=== PATIENT | female | born 1955 | race Caucasian/White ===

== ENCOUNTER 2017-11-04 07:05 | Day surgery (SDC) | payer OTHER ==
[2017-11-04] MEDS ORDERED: FENTAnyl 50 MCG/ML VIAL (09:56)
[2017-11-04] MEDS ORDERED: MIDAZOLAM 1 MG/ML 2 ML INJ ×2 (09:56)
== END 2017-11-04 10:16 | disposition home or self-care (01) ==
LOC: GIL 07:05
DX: Z12.11 Encounter for screening for malignant neoplasm of colon (principal); K44.9 Diaphragmatic hernia without obstruction or gangrene; K21.9 Gastro-esophageal reflux disease without esophagitis; K29.60 Other gastritis without bleeding; K64.8 Other hemorrhoids
CPT/HCPCS: 43239; 87081